=== PATIENT | male | born 1960 | race Caucasian/White ===

== ENCOUNTER 2020-03-14 13:19 | Outpatient (CLI) | payer OTHER, SELFPAY ==
--- NOTE | ~2020-03-14 | XR_ITS ---
EXAMINATION: XR knee LT 3V DATE: 03/14/2020 13:48 INDICATION: Left knee pain. TECHNIQUE: 3 views of left knee were obtained. COMPARISON: None. FINDINGS: Bone alignment is normal. No fracture. There is moderate osteoarthritis of medial compartme nt and mild osteoarthritis of lateral and patellofemoral compartments. There is chondrocalcinosis of the menisci. There is a small knee joint effusion. IMPRESSION: 1. Moderate left knee osteoarthritis. 2. Small knee joint effusion. Reviewed, dictated and finalized at location A.
== END 2020-03-14 13:20 | disposition home or self-care (01) ==
DX: M17.12 Unilateral primary osteoarthritis, left knee (principal); M25.462 Effusion, left knee
CPT/HCPCS: 73562

== ENCOUNTER 2020-09-27 14:23 | Outpatient (CLI) | payer OTHER, SELFPAY | END 2020-09-27 14:24 | disposition home or self-care (01) | LOC: ANHCOVIDVC 14:23 | PROVIDERS: PCP Internal Medicine | DX: Z23 Encounter for immunization (principal) | CPT/HCPCS: 0001A; 91300 ==

== ENCOUNTER 2020-10-18 14:23 | Outpatient (CLI) | payer OTHER, SELFPAY | END 2020-10-18 14:24 | disposition home or self-care (01) | LOC: ANHCOVIDVC 14:23 | PROVIDERS: PCP Internal Medicine | DX: Z23 Encounter for immunization (principal) | CPT/HCPCS: 0002A; 91300 ==

== ENCOUNTER 2021-06-24 16:49 | Emergency (ER) | payer OTHER, SELFPAY ==
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
[2021-06-24 16:51] VITALS: BP 130/89; PULSE 95; RESP 18; TEMP 37.1; O2SAT 100
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
[2021-06-24] MEDS: ONDANSETRON INJ 4 MG/2 ML VIAL IV PUSH (17:44)
[2021-06-24] MEDS: HYDROmorphone HCL INJ (*CRX) 1 MG/ML SYR 0.5 MG IV PUSH (17:45)
== END 2021-06-24 18:58 | disposition home or self-care (01) ==
PROVIDERS: Emergency Provider Emergency Medicine
DX: S52.92XA Unspecified fracture of left forearm, initial encounter for closed fracture (principal); V18.0XXA Pedal cycle driver injured in noncollision transport accident in nontraffic accident, initial encounter
CPT/HCPCS: 73090; 96374; 96375; 99284; A4565; J1170; J2405

== ENCOUNTER 2021-09-27 09:29 | Outpatient (CLI) | payer OTHER, SELFPAY ==
[2021-09-27 10:23] LABS: Anion Gap 11 mmol/L (8-16); Blood Urea Nitrogen 23 mg/dL (9-20); Calcium 9.2 mg/dL (8.4-10.2); Carbon Dioxide 29 mmol/L (22-30); Chloride 97 mmol/L (98-107); Estimated Glomerular Filt Rate > 60; Glucose 114 mg/dL (65-110); Potassium 3.5 mmol/L (3.4-5.0); Sodium 137 mmol/L (137-145)
== END 2021-09-27 09:30 | disposition home or self-care (01) ==
DX: M25.562 Pain in left knee (principal)
CPT/HCPCS: 36415; 80048

== ENCOUNTER 2025-05-27 13:00 | Day surgery (SDC) | payer OTHER, MEDICAID, SELFPAY ==
[2025-05-27] VITALS (9 sets, daily range): BP systolic 111–140; BP diastolic 72–85; PULSE 69–93; RESP 12–18; TEMP 36.2–36.5; O2SAT 96–100
--- NOTE | ~2025-05-27 | XR_ITS ---
PROCEDURE(S): XR abdomen/kub 1V INDICATION(S): Foreign body COMPARISON(S): None. TECHNIQUE: 2 supine radiographic images was/were obtained. FINDINGS: Bowel gas: The bowel gas pattern is non-specific. There is no evidence of bowel obstruction. Soft tissues: Normal. Bones: Osseous structures appear to be intact. A radiopaque device projects over the pelvic basin. It appears to be a dual lumen cylinder, object, possibly a sports drink a bottle. IMPRESSION: Foreign body in the rectum as described. Reviewed, dictated and finalized at location A. [employer]
--- OUTSIDE RECORDS SUMMARY | 2025-05-27 13:41 | XMS_ITS | Encounter Summary ---
Author Organization [facility] Address [address] [facility] [place] [address] Care Team Providers Care Barrel Stave Inspector Name Role Phone José March MD Primary Care Provider Encounter Details Date Type Department Care Team (Late st Contact Info) Description 05/04/2025 Results Follow-Up [facility] - Internal Med [address] [facility], [place] [address] José March MD [address] [facility] [place] [address] Social History Tobacco Use Types Packs/Day Years Used Date Smoking Tobacco: Former Cigarettes 1 Q uit: 2020 Smokeless Tobacco: Never Comments:pt said he wanted t o quit but can't afford the patch. Alcohol Use Standard Drinks/Week Comments Not Currently 0 (1 standard drink = 0.6 oz pur e alcohol) Rare occasion PHQ-2 Answer Date Recorded Patient Health Questionnaire-2 Score 0 03/25/2025 Sex and Gender Information Value Date Recorded Sex Assigned at Not on file Legal Sex Male 11:42 AM CDT Gender Identity Male 01/16/2019 6:13 AM CDT Sexual Orientation Not on file documented as of this encounter Functional Status * Is person deaf or have serious hearing difficulty? Answer Date of Assessment Author No 01/22/2019 3:24 PM CDT Caitlyn Hyatt, AINSLEY * Is person blind or have serious difficulty seeing? Answer Date of Assessment Author No 01/22/2019 3:24 PM CDT Caitlyn Hyatt RN * Does person have serious difficulty walking/climbing stairs? Answer Date of Assessment Author No 01/22/2019 3:24 PM CDT Caitlyn Hyatt RN * Does person have difficulty dressing/bathing? Answer Date of Assessment Author No 01/22/2019 3:24 PM CDT Caitlyn Hyatt RN * Does person have difficulty doing errands alone? Answer Date of Assessment Author No 01/22/2019 3:24 PM DIONIT Caitlyn Hyatt RN documented as of this encounter Mental Status * Does person have difficulty concentrating/remembering/making decisions? Answer Entry Date Author No 01/22/2019 3:24 PM Caitlyn Cevallos RN documented in this encounter Plan of Treatment Upcoming Encounters Date Type Department Care Team (Latest Contact Info) Description 07/23/2025 11:45 AM [facility] Hospital Encounter [facility] ENDOSCOPY [address] [place] [phone] Clif Berrios MD [address] [place] [phone] Surgery General 07/23/2025 11:45 AM [employer]ATOR [employer] - 07/23/2025 12:30 PM [facility] [employer] Surgery [facility] ENDOSCOPY [facility] [place] [address] Surgeon, [facility] COLONOSCOPY [facility]AGNOSTIC Scheduled Procedures Name Priority Associated Diagnoses Date/Ti me COLONOSCOPY DIAGNOSTIC Positive colorectal cancer screening using Cologuard test 07/23/2025 11:45 AM [employer] [employer] documented as of this encounter Goals Goal Patient Goal Type Associated Problems Recent Progress Patient-Stated? Author Medication Management General No Vani Lopez, RN Note: Interventions: Pain management Medication Management General On track( 020 2:10 PM CDT) No Gayle Lynn, RN Note: Expected end date: ongoing Interventions: Take all medications as prescribed documented as of this encounter Visit Diagnoses Not on filedocumented in this encounter Care Teams Barrel Stave Inspector Relationship Specialty Start Date End Date José March MD [address] [place] [address] [place] [address] PCP - General Internal Medicine 02/19/25 documented as of this encounter
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
--- OUTSIDE RECORDS SUMMARY | 2025-05-27 13:41 | XMS_ITS | Clinical Summary ---
Author Organization [facility] Address [address] [place] [address] Care Team Providers Care Laborer Stores Name Role Phone None, Provider MD Primary Care Provider Unavaila ble Allergies No known active allergies Medications albuterol sulfate HFA 108 (90 Base) MCG/ACT inhaler Inhale 2 puffs into the lungs every 4 (four) hours as needed for Wheezing or Shortness of breath. 1 Inhaler 9 Active ACETAMINOPHEN EXTRA STRENGTH 500 MG tablet 1 Active amLODIPine 10 MG tablet Take 10 mg by mouth daily. 1 Active SYMBICORT 160-4.5 MCG/ACT inhaler 2 puffs 2 (two) times daily. 1 Active buPROPion 75 MG tablet 0 Active chlorthalidone 25 MG tablet Take 50 mg by mouth daily. 1 Active chlorthalidone 50 MG tablet Take 50 mg by mouth daily. 1 Active DULoxetine 60 MG capsule Take 60 mg by mouth daily. 1 Active gabapentin 400 MG capsule Take 800 mg by mouth 3 (three) times daily. 1 Active hydrOXYzine 50 MG tablet Take 50 mg by mouth 4 (four) times daily. 1 Active naproxen 500 MG tablet Take 500 mg by mouth 2 (two) times daily. 1 Active amoxicillin-cla vulanate (AUGMENTIN) 875-125 MG tablet Take 1 tablet (875 mg total) by mouth 2 (two) times daily for 10 days. 20 tablet 5 05/02/20 25 Encounters Date Type Department Care Team Description 04/22/2025 12:37 AM CDT - 04/22/2025 1:42 AM CDT Emergency [facility] [place] [address] Deepika Tolentino PA Animal Bite Discharge Disposition: Home or Self Care (Routine Discharge) 04/22/2025 Travel from Last 3 Months Immunizations Immunization Administration Dates Next Due Tdap (Boostrix) 04/22/2025 Social History Tobacco Use Types Packs/Day Years Used Date Smoking Tobacco: Every Day Smokeless Tobacco: Never Alcohol Use Standard Drinks/Week Comments No 0 (1 standard drink = 0.6 oz pur e alcohol) AUDIT-C Answer Date Recorded Frequency of Alcohol Consumption Never 11/24/2018 Average Number of Drinks Not on file 019 Frequency of Binge Drinking Not on file 11/12 Sex and Gender Information Value Date Recorded Sex Assigned at Not on file Legal Sex Male 8:32 PM CDT Gender Identity Not on file Sexual Orientation Not on file Last Filed Vital Signs Vital Sign Reading Time Taken Comments Blood Pressure 121/84 04/22/2025 1:38 AM CDT Pulse 94 04/22/2025 1:38 AM CDT Temperature 36.4 C (97.6 F) 04/22/2025 12:28 AM CDT Respiratory Rate 18 04/22/2025 1:38 AM CDT Oxygen Saturation 97% 04/22/2025 1:38 AM CDT Inhaled Oxygen Concentration - - Weight 90.7 kg (200 lb) 04/22/2025 12:28 AM CDT Height 172.7 cm (5' 8) 04/22/2025 12:28 AM CDT Body Mass Index 30.41 04/22/2025 12:28 AM CDT Plan of Treatment Health Maintenance Due Date Last Done Comments Colorectal Cancer Screening Colonoscopy (10 Years) 1960 Pneumococcal Vaccine: 50+ Years (2 of 2 - PCV) 07/24/2020 07/24/2019 AAA SCREENING 2024 01/16/2019, 01/16/2019 COVID-19 Vaccine ( - 2024-2 6 season) 2025 11/30/2021, 10/18/2020, 09/27/2020 Influenza Adult (#1) 2025 04/29/2021, 03/30/2019 RSV Immunization or 60+ Years (1 - 1-dose 75+ series) 2034 DTaP, Tdap and Td Vaccines ( 3 - Td or Tdap) 04/22/2035 04/22/2025, 02/25/2020 Zoster Vaccines Completed 09/06/2019, 06/24/2019 Hepatitis C Completed 09/02/2023 Hepatitis A Vaccines Aged Out No long er eligible based on patient's age to complete this topic Meningococcal B Vaccine Aged Out No l onger eligible based on patient's age to complete this topic Meningococcal Vaccine Aged Out No kali darien eligible based on patient's age to complete this topic RSV Immunizations Under 20 Months Aged Out No longer eligible b ased on patient's age to complete this topic Insurance MEDICARE Care Teams Laborer Stores Relationship Specialty Start Date End Date None, Provider, PCP - General 11/24/18
--- OUTSIDE RECORDS SUMMARY | 2025-05-27 13:41 | XMS_ITS | Encounter Summary ---
Author Organization [facility] Address [address] [facility] [place] [address] Care Team Providers Care School Librarian Name Role Phone Cong Rob MD Primary Care Prov ider Oneal DE MD, Norman Brady Primary Care Provider + Lelia Naranjo MD Unavailable Oneal DE MD, Norman Brady Primary Care Provider + Oneal DE MD, Norman Brady Primary Care Provider + Lelia Naranjo MD Primary Care Provider Oneal DE MD, Norman Brady Primary Care Provider + Doris Urrutia MD Unavailable [phone] Carl Jean DO Unavailable [phone] Oneal DE MD, Norman Brady Primary Care Provider + José March MD Primary Care Provider [phone] Encounter Details Date Type Department Care Team (Late st Contact Info) Description 11/30/[address] [facility] INTERNAL MED [address] [place] [address] Dimitris Forte MD [address] [place] [address] Social History Tobacco Use Types Packs/Day Years [...] 3:24 PM CDT Caitlyn Hyatt RN * Is person blind [...] 01/22/2019 3:24 PM CDT Caitlyn Hyatt RN documented as of this encounter Mental Status * Does person have difficulty concentrating/remembering/making decisions? Answer Entry Date Author No 01/22/2019 3:24 PM DIONIT Caitlyn Hyatt RN documented in this encounter Miscellaneous Notes * Telephone Encounter - Dimitris Forte MD - 11/30/2019 1:26 PM CDT Telephone Note Called 1:39 PM without identifying voicemail. Tentative plan would be to start chantrix D/C amlodapine Start metop (if home bp readings elevated) Order PFTs Order Symbicort and albuterol Dimitris Forte MD documented in this encounter Plan of Treatment Upcoming Encounters Date Type Department Care Team (Latest Contact Info) Description 07/23/2025 11:45 AM [facility] Hospital Encounter [facility] ENDOSCOPY [address] [place] [address] Clif Berrios MD [address] [place] [address] Surgery General 07/23/2025 11:45 AM TOBACCO HANGER - 07/23/2025 12:30 PM TOBACCO HANGER Surgery [facility] ENDOSCOPY [address] [place] [phone] Surgeon, [facility]ONOS[facility]STIC Scheduled Procedures Name Priority Associated Diagnoses Date/Ti me COLONOSCOPY DIAGNOSTIC Positive colorectal cancer screening using Cologuard test 07/23/2025 11:45 AM TOBACCO HANGER documented as of this encounter Goals Goal Patient Goal Type Associated Problems Recent Progress Patient-Stated? Author Medication Management General No Vani Lopez, RN Note: Interventions: Pain management Medication Management General On track( 020 2:10 PM CDT) No Gayle Lynn, RN Note: Expected end date: ongoing Interventions: Take all medications as prescribed documented as of this encounter Visit Diagnoses Diagnosis Chronic obstructive pulmonary disease, unspecified COPD type (HCC)- Primary Positive colorectal cancer screening using Cologuard test documented in this encounter Care Teams School Librarian Relationship Specialty Start Date End Date Cong Rob MD PCP - General 03/24/19 03/08/20 Norman No III, MD PCP - General Internal Medicine 03/09/20 04/18/20 Norman No III, MD [address] [facility] [address] [place] [address] PCP - General Internal Medicine 04/19/20 06/02/20 Norman No III, MD [address] [facility] [address] OF [facility] [place] [place] [address] PCP - General Internal Medicine 06/07/20 06/13/20 Lelia Naranjo MD PCP - General 06/14/20 09/21/21 Norman No III, MD [address] OF [facility] [place] [place] [phone] PCP - General Internal Medicine 09/22/21 07/03/23 Norman No III, MD [address] OF [facility] [place] [address] PCP - General Internal Medicine 08/05/23 09/20/23 José March MD [address] [place] [phone] PCP - General Internal Medicine 02/19/25 Lelia Naranjo MD Resident - PCP Student Resident 03/09/20 01/17/22 Doris Urrutia MD [address] OF [facility] INTERNAL MEDICINE [place], [place] Resident - PCP Internal Medicine 11/16/21 01/17/22 Carl Jean DO [address] OF [facility] INTERNAL MEDICINE [place], [place] Resident - PCP Internal Medicine 01/28/23 02/18/25 documented as of this encounter
--- OUTSIDE RECORDS SUMMARY | 2025-05-27 13:42 | XMS_ITS | Clinical Summary ---
Author Organization [facility] [email or web address] Address [address] [place] [address] Care Team Providers Care Journeyman Welder Name Role Phone José March MD Primary Care Provider [phone] Source Comments [facility] [email or web address],non-owned Affiliates and Associated Physician Practices is amultiple site organization consisting of ambulatory clinics and hospital sitesin [place], [place], [place] and [place]. This disclosure is being madepursuant to the Care Everywhere program and may not contain all information available regarding this patient. Last updated 18.[facility] [email or web address] Allergies No known active allergies Medications * Be aware that medications may not be up to date on this document. Alwaysverify current medications with the patient. Blood Pressure Monitoring (Blood Pressure Cuff) [facility] Check blood pressure twice daily 1 Each 08/15/19 24 Active albuterol HFA (Proventil; Ventolin; Proair) 108 (90 Base) MCG/ACT inhaler Inhale 2 (two) puffs by mouth every 4 hours as needed 8.5 g 1 08/26/19 25 Active amLODIPine (Norvasc) 10 MG tablet Take 1 (one) tablet by mouth once daily 90 tablet 4 08/26/19 25 Active budesonide-formote rol (Symbicort) 160-4.5 MCG/ACT inhaler INHALE 2 PUFFS BY MOUTH 2 TIMES A DAY 10.2 g 3 08/26/19 25 Active chlorthalidone (Hygroton) 25 MG tablet Take 1 (one) tablet by mouth once daily 90 tablet 4 08/26/19 25 Active gabapentin (Neurontin) 400 MG capsule Take 2 (two) capsules by mouth 3 times daily 180 capsule 3 08/26/19 25 Active hydrOXYzine HCl (Atarax) 50 MG tabletIndications: Anxiety Take 1 (one) tablet by mouth 4 times daily as needed for Itching 120 tablet 11 08/26/19 25 Active meloxicam (Mobic) 15 MG tablet TAKE 1 TABLET BY MOUTH EVERY DAY NEEDED (FOR KNEE PAIN) 90 tablet 3 08/26/19 25 Active lidocaine (Lidoderm) 5 % patchIndications:O steoarthritis of both knees, unspecified osteoarthritis type Apply 3 (three) patches to skin once daily 90 patch 14 08/27/19 25 Active DULoxetine (Cymbalta) 60 MG capsuleIndications :Anxiety TAKE 1 CAPSULE BY MOUTH EVERY DAY 30 capsule 3 01/14/20 25 Active sildenafil (Viagra) 100 MG tabletIndications: Erectile dysfunction, unspecified erectile dysfunction type Take 1 (one) tablet by mouth once daily as needed 1 hour prior to intercourse 90 tablet 03/25/20 25 025 Active diclofenac sodium (Voltaren) 1 % gelIndications:Ost eoarthritis of both knees, unspecified osteoarthritis type Apply 4 (four) g to affected area 4 times daily 100 g 5 03/25/20 25 Active Active Problems Problem Noted Date Diagnosed Date Erectile dysfunction 03/26/2024 Positive colorectal cancer screening using Colog uard test 03/26/2024 Chondrocalcinosis 09/30/2023 Prediabetes 09/30/2023 Essential hypertension 02/13/2023 Hyperlipidemia 02/13/2023 Osteoarthritis 02/13/2023 MORIS (generalized anxiety disorder) 02/13/2023 Hepatitis C virus infection cured after antiviral drug therapy 07/24/2019 Overview (09/25/2019): Hepatitis B core antibody non reactive Genotype 1 a or 1 b Date of Exam: 09/25/2019 LSM, kPa 6.9 CAP 317 Chronic pain syndrome 05/15/2019 Osteomyelitis of vertebra, thoracic region 01/22 MSSA bacteremia 01/22/2019 Bacterial endocarditis 01/15/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 [phone] Davina Wing MD Discharge Disposition: Home or Self Care 05/11/2025 10:05 AM CDT - 05/11/2025 11:59 PM CDT Hospital Encounter [facility] [address] [address] [place] [address] Davina Wing MD Discharge Disposition: Home or Self Care 05/11/2025 Travel 05/10/2025 Telephone [facility] - Internal Med [address] [place] [phone] José March MD Medication Prior Auth Request 05/04/2025 Results Follow-Up [facility] [address] [place] [phone] José March MD 05/04/2025 Orders Only [facility] [address] [place] [phone] Davina Wing MD Pain in both knees, unspecified chronicity 05/03/2025 11:00 AM CDT - 05/03/2025 11:59 PM CDT Hospital Encounter [facility] [address] [place] [phone] Ruthy Miller MD Discharge Disposition: Home or Self Care 05/03/2025 Travel 04/26/2025 11:00 AM CDT Office Visit [facility] [address] [place] [phone] Zaynab Wells PA-C Primary osteoarthritis of right knee (Primary Dx); Primary osteoarthritis of left knee; Chronic pain of both knees 04/26/2025 Travel 03/26/2025 Telephone [facility] - Centralized Scheduling [address] [place] [address] José March MD Medication Issue 03/26/2025 Telephone [facility] [address] [place] [phone] José March MD Rx Medication Issue 03/25/2025 1:30 PM CDT Office Visit [facility] - [facility] [address] [place] [phone] José March MD Essential hypertension (Primary Dx); Erectile dysfunction, unspecified erectile dysfunction type; Personal history of nicotine dependence; Positive colorectal cancer screening using Cologuard test; Hyperlipidemia, unspecified hyperlipidemia type; Prediabetes; Osteoarthritis of both knees, unspecified osteoarthritis type; Cataract of both eyes, unspecified cataract type 03/25/2025 Patient Outreach [facility] [address] [place] [phone] Lidya Horan RN 03/25/2025 Travel from Last 3 Months Immunizations Immunization Administration Dates Next Due CovWedWu primary monoval ent 12+ yr 0.3mL Purple cap 10/18/2020,09/27/2020 INFLUENZA VACCINE, QUADR. (A FLURIA, FLUZONE QUADRIVALENT; 6MO+) (IIV4) 03/30/2019 INFLUENZA VACCINE, QUADR. (F LUZONE; FLULAVAL; FLUARIX; AFLURIA QUADRIVALENT; 6MO+), 0.5 ML (IIV4) 04/29/2021,03/30/2019 MODERNA SARS-COV-2 COVID-19 VACCINE 0.25ML 11/30 PNEUMOCOCCAL PPSV23 07/24/2019 TDAP (7yrs+) 02/25/2020 Zoster Hzv Vacc Recombinant Inj Im 09/06/2019,,06/24/2019 Family History Medical History Relation Name Comments Cancer - Pancreatic Brother Cancer - Liver Mother Diabetes - Type 2 Mother Lymphoma Mother Hypertension Other Relation Name Status Comments Brother Mother Other Social History Tobacco Use Types Packs/Day Years Used Date Smoking Tobacco: Former Cigarettes 1 Q uit: 2020 Smokeless Tobacco: Never Tobacco Cessation:Counseling Given: Not Answered Comments:pt said he wanted to quit but can't afford the patch. Alcohol [...] AM CDT Sexual Orientation Not on file Last Filed Vital Signs Vital Sign Reading Time Taken Comments Blood Pressure 128/81 03/25/2025 1:33 PM CDT Pulse 82 03/25/2025 1:33 PM CDT Temperature 36.4 C (97.5 F) 03/25/2025 1:33 PM CDT Respiratory Rate 16 08/15/2023 1:14 PM TEACHER VISUALLY IMPAIRED Oxygen Saturation 95% 03/25/2025 1:33 PM CDT Inhaled Oxygen Concentration - - Weight 86.2 kg (190 lb) 04/26/2025 11:17 AM CDT Height 170.2 cm (5' 7) 03/25/2025 1:33 PM CDT Body Mass Index 29.76 03/25/2025 1:33 PM CDT Plan of Treatment Upcoming Encounters Date Type Department Care Team (Latest Contact Info) Description 07/23/2025 11:45 AM [facility] Hospital Encounter [facility] [address] [place] [phone] Clif Berrios MD [address] [place] [phone] Surgery General 07/23/2025 11:45 AM TEACHER VISUALLY IMPAIRED - 07/23/2025 12:30 PM [facility] Surgery [facility] [address] [place] [phone] Surgeon, [facility] Scheduled Procedures Name Priority Associated Diagnoses Date/Ti me COLONOSCOPY DIAGNOSTIC Positive colorectal cancer screening using Cologuard test 07/23/2025 11:45 AM TEACHER VISUALLY IMPAIRED Health Maintenance Due Date Last Done Comments COLON MONITORING 1959 COLONOSCOPY - COLON CA SCREENING 1959 CT COLONOGRAPHY - COLON CA SCREENING 1959 FIT - COLON CA SCREENING 1959 FLEX SIG - COLON CA SCREENING 1959 PNEUMOCOCCAL VACCINE 50+ (2 of 2 - PCV) 07/24/2020 07/24/2019 COLOGUARD (AGES 45-75) - COLON CA SCREENING 06/19/2023 06/19/2020, 06/19/2020 Colorectal Cancer Screening 06/19/2023 MEDICARE AWV CALENDAR YEAR 2024 COVID-19 VACCINE ( season) 2025 11/30/2021, 03/06/2021, 10/18/2020, Additional history exists INFLUENZA VACCINE (#1) 2025 1, 03/30/2019, 03/30/2019 SCREENING FOR DIABETES 09/26/2026 4, 09/27/2023, 06/21/2020, Additional history exists LIPID TESTING 09/26/2028 09/27/2023, 03/20/2019 DTAP/TDAP/TD VACCINES (2 - Td or Tdap) 02/24/2030 02/25/2020 Respiratory Syncytial Virus (RSV) Vaccine Pt: or over 60 yrs (1 - 1-dose 75+ series) 2034 HIV SCREENING Completed 01/17/2019 ZOSTER VACCINE Completed 09/06/2019, 06/14, 06/24/2019 HEPATITIS C SCREENING Completed 09/27/2023 , 09/27/2023, 09/02/2023, Additional history exists DEPRESSION SCREENING Completed 03/25/2025, 08/15/19 24 AAA SCREENING Completed 05/03/2025 HEPATITIS B VACCINE Aged Out No longe r eligible based on patient's age to complete this topic HIB VACCINE Aged Out No longer eligi ble based on patient's age to complete this topic HPV VACCINE Aged Out No longer eligi ble based on patient's age to complete this topic MENINGOCOCCAL (Group B) VACCINE SHARED DECISION-MAKING Aged Out No longer eligible based on patient's age to complete this topic MENINGOCOCCAL GROUPS A/C/Y/W VACCINE Aged Out No longer eligible based on patient's age to complete this topic Opioid Medication Agreement - Annual Discontinued Goals Goal Patient Goal Type Associated Problems Recent Progress Patient-Stated? Author Medication Management General No Vani Lopez, RN Note: Interventions: Pain management Medication Management General On track( 020 2:10 PM CDT) No Gayle Lynn, RN Note: Expected end date: ongoing Interventions: Take all medications as prescribed Procedures Procedure Name Priority Date/Time Associated Diagnosis Comments XR KNEE RIGHT 3VW Routine 05/11/2025 10: 16 AM CDT Pain in both knees, unspecified chronicity XR KNEE LEFT 3VW Routine 05/11/2025 10:1 6 AM CDT Pain in both knees, unspecified chronicity US AAA SCREENING Routine 05/03/2025 11:4 9 AM CDT Personal history of nicotine dependence HEMOGLOBIN A1C Routine 09/27/2023 4:28 PM CDT Encounter for screening and preventative care LIPID PROFILE Routine 09/27/2023 4:28 PM CDT Encounter for screening and preventative care HEPATITIS C RNA QUANTITATIVE Routine 09/02/2023 1:53 PM TEACHER VISUALLY IMPAIRED Chronic hepatitis C without hepatic coma COLOGUARD TEST Routine 06/19/2020 6:00 PM TEACHER VISUALLY IMPAIRED Special screening for malignant neoplasms, colon HIV-1 HIV-2 ANTIGEN/ANTIBODY AM Draw 01/17/2019 4:52 AM CDT from Last 3 Months or Most Recently Relevant to Health Maintenance Results * XR Knee Right 3Vw (05/11/2025 10:16 AM CDT) Anatomical Region Laterality Modality Lower Extremity Radiographic Eli ging 05/11/2025 11:2 4 AM CDT Impressions 05/11/2025 11:25 AM CDT IMPRESSION: There is open reduction internal fixation of the proximal tibia with a lateral plate and multiple screws. There is no fracture of the implant. There is moderate tricompartmental right knee osteoarthritis. There is chondrocalcinosis of the meniscus. Alignment of the knee is normal. > Interpreting Provider: Jefferson Horta MD on 05/11/2025 11:25 AM Narrative 05/11/2025 11:25 AM CDT PROCEDURE: XR KNEE RIGHT 3VW DATE/TIME OF EXAM: 05/11/2025 10:17 AM CLINICAL INFORMATION: None relevant/not provided if blank. Indication: M25.561: Pain in both knees, unspecified chronicity M25.562: Pain in both knees, unspecified chronicity Additional History: COMPARISON: None. Procedure Note Jefferson Horta MD - 05/11/2025 PROCEDURE: XR KNEE RIGHT 3VW DATE/TIME OF EXAM: 05/11/2025 10:17 AM CLINICAL INFORMATION: None relevant/not provided if blank. Indication: M25.561: Pain in both knees, unspecified chronicity M25.562: Pain in both knees, unspecified chronicity Additional History: COMPARISON: None. IMPRESSION: There is open reduction internal fixation of the proximal tibia with a lateral plate and multiple screws. There is no fracture of the implant. There is moderate tricompartmental right knee osteoarthritis. There is chondrocalcinosis of the meniscus. Alignment of the knee is normal. > Interpreting Provider: Jefferson Horta MD on 05/11/2025 11:25 AM Davina Wing MD DIAGNOSTIC IMAGING ORDERABLES Fi nal Result * XR Knee Left 3Vw (05/11/2025 10:16 AM CDT) Anatomical Region Laterality Modality Lower Extremity Radiographic Eli ging 05/11/2025 11:2 6 AM CDT Impressions 05/11/2025 11:27 AM CDT IMPRESSION: Moderate medial compartment predominant tricompartmental knee osteoarthritis. There is chondrocalcinosis of the meniscus. No acute fracture. There is a small knee effusion. Alignment is normal. > Interpreting Provider: Jefferson Horta MD on 05/11/2025 11:27 AM Narrative 05/11/2025 11:27 AM CDT PROCEDURE: XR KNEE LEFT 3VW DATE/TIME OF EXAM: 05/11/2025 10:16 AM CLINICAL INFORMATION: None relevant/not provided if blank. Indication: M25.561: Pain in both knees, unspecified chronicity M25.562: Pain in both knees, unspecified chronicity Additional History: COMPARISON: 09/27/2023, XR KNEE LEFT 4VW OR MORE Procedure Note Jefferson Horta MD - 05/11/2025 PROCEDURE: XR KNEE LEFT 3VW DATE/TIME OF EXAM: 05/11/2025 10:16 AM CLINICAL INFORMATION: None relevant/not provided if blank. Indication: M25.561: Pain in both knees, unspecified chronicity M25.562: Pain in both knees, unspecified chronicity Additional History: COMPARISON: 09/27/2023, XR KNEE LEFT 4VW OR MORE IMPRESSION: Moderate medial compartment predominant tricompartmental knee osteoarthritis. There is chondrocalcinosis of the meniscus. No acute fracture. There is a small knee effusion. Alignment is normal. > Interpreting Provider: Jefferosn Horta MD on 05/11/2025 11:27 AM Davina Wing MD DIAGNOSTIC IMAGING ORDERABLES Fi nal Result * US AAA Screening (05/03/2025 11:49 AM CDT) Anatomical Region Laterality Modality Abdomen Ultrasound 05/03/2025 11:5 1 AM CDT Impressions 05/03/2025 11:52 AM CDT IMPRESSION: No evidence of abdominal aortic aneurysm. > Interpreting Provider: Erasmo Torrez on 05/03/2025 11:52 AM Narrative 05/03/2025 11:52 AM CDT PROCEDURE: US AAA SCREENING, DATE/TIME OF EXAM: 05/03/2025 11:49 AM, LOCATION [facility] INDICATION: Z87.891: Personal history of nicotine dependence ADDITIONAL CLINICAL INFORMATION: Ordering Provider Reason For Exam: Technologist Note: Additional: COMPARISON: None. FINDINGS: Proximal abdominal aorta: 2.5 cm AP x 2.4 cm transverse Mid abdominal aorta: 1.5 x 1.7 cm Distal abdominal aorta: 1.3 x 1.6 cm Right common iliac artery: 1 x 1 mm Left common iliac artery: 1 x 0.9 mm There is no evidence of abdominal aortic or common iliac artery aneurysm. The abdominal aorta and common iliac arteries are patent. Hyperechoic foci in the abdominal aorta and proximal iliac arteries represent atherosclerotic plaques. Procedure Note Erasmo Sykes MD - 05/03/2025 PROCEDURE: US AAA SCREENING, DATE/TIME OF EXAM: 05/03/2025 11:49 AM, LOCATION [facility] INDICATION: Z87.891: Personal history of nicotine dependence ADDITIONAL CLINICAL INFORMATION: Ordering Provider Reason For Exam: Technologist Note: Additional: COMPARISON: None. FINDINGS: Proximal abdominal aorta: 2.5 cm AP x 2.4 cm transverse Mid abdominal aorta: 1.5 x 1.7 cm Distal abdominal aorta: 1.3 x 1.6 cm Right common iliac artery: 1 x 1 mm Left common iliac artery: 1 x 0.9 mm There is no evidence of abdominal aortic or common iliac arteryaneurysm. The abdominal aorta and common iliac arteries are patent. Hyperechoicfoci in the abdominal aorta and proximal iliac arteries represent atherosclerotic plaques. IMPRESSION: No evidence of abdominal aortic aneurysm. > Interpreting Provider: Erasmo Torrez on 05/03/2025 11:52 AM us Ruthy Miller MD US ORDERABLES Final Resul t * (ABNORMAL) HEMOGLOBIN A1C (09/27/2023 4:28 PM CDT) Hemoglobin A1c 5.9(H) <=5.6 % 09/28/2023 10:18 AM T [facility] Estimated Average Glucose 123 mg/dL 09/28/2023 10:18 AM [facility] Comment: HbA1c Interpretation: Normal : < 5.7% Pre-diabetes: 5.7-6.4% Diabetes: Equal to or greater than 6.5% Test results diagnostic of diabetes should be repeated for confirmation. Treatment target values recommended by ADA and other clinical organizations should be used to evaluate metabolic control in patients. Reference: [place] Diabetes Association, Standards of Care in Diabetes -2020 In patients 70 years and older consider HbA1c target range of 7.0-7.5% (Reference: Adonay Bass et al. JAMDA. 2012) The Sebia assay for the measurement of HbA1c is a National Glycohemoglobin Standardization Program (NGSP) certified method. Blood BLOOD SPECIMEN / Unknown Lab Venipuncture / Unknown 09/27/2023 4:28 PM CDT 09/27/2023 4:53 PM CDT Koko Joy MD LAB - CHEMISTRY ORDERABLES Fin al Result Performing Organization Address [facility] Co de Phone Number [facility] [address] [place] [phone], [facility] [phone] * (ABNORMAL) LIPID PROFILE (09/27/2023 4:28 PM CDT) Cholesterol Total 174 <200 mg/dL 09/27/2023 5:29 PM T [facility] HDL 34(L) >40 mg/dL 09/27/2023 5:29 PM T [facility] Comment: ATP III Classification of HDL Cholesterol: <40 mg/dL: Considered a major risk factor. >60 mg/dL: Considered a negative risk factor. LDL Calculated 106(H) <100 mg/dL 09/27/2023 5:29 PM [facility] Comment: ATP III Classification of LDL Cholesterol: <100 mg/dL: Optimal 100 - 129 mg/dL: Near Optimal/Above Optimal 130 - 159 mg/dL: Borderline High 160 - 189 mg/dL: High >190 mg/dL: Very High Triglycerides 168(H) <150 mg/dL 09/27/2023 5:29 PM T [facility] Comment: ATP III Classification of Triglycerides: <150 mg/dL: Normal 150 - 199 mg/dL: Borderline High 200 - 400 mg/dL: High >500 mg/dL: Very High Blood BLOOD SPECIMEN / Unknown Lab Venipuncture / Unknown 09/27/2023 4:28 PM CDT 09/27/2023 4:55 PM CDT Koko Joy MD LAB - CHEMISTRY ORDERABLES Fin al Result [facility] [address] [place] [address], [facility] [phone] * HEPATITIS C RNA QUANTITATIVE (09/02/2023 1:53 PM TEACHER VISUALLY IMPAIRED) [facility] Hepatitis C Virus RNA, Quantitative Real Time PCR <15 NOT DETECTED NOT DETECTED IU/mL JOSÉ Hepatitis C Virus RNA, Quantitative Real Time PCR <1.18 NOT DETECTED NOT DETECTED Log IU/mL JOSÉ Comment: This test was performed using Real-Time Polymerase Chain Reaction. Reportable Range: 15 IU/mL to 100,000,000 IU/mL (1.18 Log IU/mL to 8.00 Log IU/mL). The analytical performance characteristics of this assay have been determined by [employer]. The modifications have not been cleared or approved by the FDA. This assay has been validated pursuant to the CLIA regulations and is used for clinical purposes. For more information on this test, go to: http://education.InstantQ/faq/SDZ11s6 (This link is being provided for informational/ educational purposes only.) Test Performed at: [facility] [id number] [place] [address] MYAH KELLY MD Blood BLOOD SPECIMEN / Unknown 09/02/2023 1:53 PM TEACHER VISUALLY IMPAIRED 09/02/2023 1:54 PM TEACHER VISUALLY IMPAIRED Kain Loco MD LAB - CHEMISTRY ORDERAB LES Final Result [facility] [address] [place] [address] * (ABNORMAL) COLOGUARD TEST (06/19/2020 6:00 PM TEACHER VISUALLY IMPAIRED) [facility] Cologuard Positive (A) Not Applicable [facility] Comment: It is recommended that a positive Cologuard screen be clinically correlated and followed-up with a structural examination of the colon such as diagnostic colonoscopy. Colonoscopies performed for a positive Cologuard may find as the most clinically significant lesion: colorectal cancer [4.0%], advanced adenoma (including sessile serrated polyps greater than or equal to 1cm diameter) [20%] or non- advanced adenoma [31%]; or no colorectal neoplasia [45%]. These estimates are derived from a prospective cross-sectional screening study of 10,000 individuals at average risk for colorectal cancer who were screened with both Cologuard and colonoscopy. (Table 3, Laura Sanchez al, N Engl J Med 2014;370(14):4970-6865.) The normal value (reference range) for this assay is negative. TEST TYPE: Composite algorithmic analysis of stool DNA-biomarkers with hemoglobin immunoassay. Quantitative values of individual biomarkers are not reportable and are not associated with individual biomarker result reference ranges. PRECAUTIONS AND LIMITATIONS: Cologuard is intended for colorectal cancer screening of adults of either sex, 45 years or older, who are at average-risk for colorectal cancer (CRC). Cologuard has been approved for use by the U.S. FDA. Cologuard may produce a false negative or false positive result. A negative Cologuard test result does not guarantee the absence of CRC or advanced adenoma (pre-cancer). Patients with a negative Cologuard test result should be advised to continue participating in a colorectal cancer screening program. The screening interval for Cologuard is currently recommended at an interval of every 3 years by the [place] Cancer Society and U.S. Multi-Society Task Force. A false positive result occurs when Cologuard produces a positive result, even though a colonoscopy may not find colorectal cancer or precancerous polyps. The performance of Cologuard has been established in a cross sectional study (i.e., single point in time) of average-risk adults aged 50-84. Cologuard performance in patients ages 45 to 49 years was estimated by sub-group analysis of near-age groups. Cologuard performance data in a 10,000 patient pivotal study using colonoscopy as the reference method can be accessed at the following location: [email or web address]/results. Additional description of the Cologuard test process, warnings and precautions can be found at www.cologuardtest.com. Rx only. Stool specimen (specimen) STOOL SPECIMEN / Unknown 06/19/2020 6:00 PM TEACHER VISUALLY IMPAIRED 06/21/2020 9:20 AM TEACHER VISUALLY IMPAIRED us Lelia Naranjo MD LAB - CHEMISTRY ORDERABLES Final Result [facility] [address] [address] [address] [facility] [address] [address] [place] [address]. [place] [address] * HIV-1 HIV-2 ANTIGEN/ANTIBODY (01/17/2019 4:52 AM CDT) HIV Antigen/Antibod y 1 & 2 Non-reacti ve Non-react mati 01/17/2019 5:46 AM CDT [facility] Comment: Neither HIV-1 p24 Antigen nor HIV-1/HIV-2 Antibodies are detected. Blood BLOOD SPECIMEN / Unknown Lab Venipuncture / Unknown 01/17/2019 4:52 AM CDT 01/17/2019 5:01 AM CDT Carolyn Diallo MD LAB - HEMATOLOGY ORDERABLES Blaire l Result [address] [phone] from Last 3 Months or Most Recently Relevant to Health Maintenance Insurance [facility] [employer] MEDICARE ADV HMO & PPO MEDICAID - [place] Advance Directives * Full Code (Latest Code Status on File) Date Activated Date Inactivated Comments 01/15/2019 9:06 PM 03/01/2019 11:41 AM Care Teams Journeyman Welder Relationship Specialty Start Date End Date José March MD [address] [facility] [place] [address] PCP - General Internal Medicine 02/19/25
--- NOTE | 2025-05-27 14:24 | ED.ABDPAIN ---
HPI - Abdominal Pain General Chief Complaint: Unspecified <Patricia Gallagher PA-C - Last Filed: 06/05/25 14:45> Stated Complaint: abd pain <Patricia Gallagher PA-C - Last Filed: 06/05/25 14:45> Time Seen by Provider: 05/27/25 14:24 <Patricia Gallagher PA-C - Last Filed: 06/05/25 14:45> Focused HPI: This is a 64 year old male that presents to the ER for abdominal pain. Reports he thinks he has something lodged up his rectum. This happened last night. He is unsure what the object is. GENERAL: Well-appearing, well-nourished, and in no acute distress. HEAD: Normocephalic, atraumatic. CHEST: Clear to auscultation. ?No respiratory distress. HEART: Regular rate and rhythm.? NEURO: ?Alert and oriented x3. Patient screened in triage and initial orders placed.? ?Additional care and disposition to be based upon?diagnostic testing and treatment. <Patricia Gallagher PA-C - Last Filed: 06/05/25 14:45> History of Present Illness HPI narrative: I agree with the above HPI <Reuben Lau MD - Last Filed: 05/27/25 22:32> Related Data Home Medications: Home Medications ?Medication ?Instructions ?Recorded ?Confirmed ?Last Taken ?Type amlodipine 10 mg tablet 40 mg PO DAILY 06/27/21 05/27/25 05/27/25 History hydroxyzine HCl 10 mg tablet 10 mg PO TID PRN 06/27/21 Unknown History chlorthalidone 25 mg tablet 25 mg PO DAILY 05/27/25 05/27/25 05/27/25 History duloxetine 60 mg capsule,delayed 60 mg PO DAILY 05/27/25 05/27/25 05/27/25 History release gabapentin 400 mg capsule 400 mg PO DAILY 05/27/25 05/27/25 05/27/25 History hydroxyzine HCl 50 mg tablet 50 mg PO Q8H 05/27/25 05/27/25 05/27/25 History meloxicam 15 mg tablet 15 mg PO DAILY 05/27/25 05/27/25 05/27/25 History sildenafil 100 mg tablet 100 mg PO PRN PRN erectile 05/27/25 05/27/25 Unknown History dysfunction <Patricia Gallagher PA-C - Last Filed: 06/05/25 14:45> Allergies/Adverse Reactions: Allergies Allergy/AdvReac Type Severity Reaction Status Date / Time No Known Allergies Allergy Verified 05/27/25 16:50 <Patricia Gallagher PA-C - Last Filed: 06/05/25 14:45> Review of Systems Review of Systems: All systems reviewed & are unremarkable except as noted in HPI and below <Patricia Gallagher PA-C - Last Filed: 06/05/25 14:45> [facility] Past Medical History Medical History: Medical History Tobacco dependence Bilateral primary osteoarthritis of knee Osteoporosis Anxiety Depression Dry skin Constipation When taking anxiety medication Chronic headaches Back pain Weight gain Left knee DJD Right knee DJD Spider bite Vision changes COPD (chronic obstructive pulmonary disease) Left ulnar fracture <Patircia Gallagher PA-C - Last Filed: 06/05/25 14:45> Surgical History Surgical History: Surgical History History of ankle surgery History of surgery on right wrist <Patricia Gallagher PA-C - Last Filed: 06/05/25 14:45> Social History Social History: Social History Smoking packs per day: 1 Smoking cigarettes per day: 20.0 Years smoked: 45 Smoking pack-years: 45.00 Smoking status: Current every day smoker (vaping) Tobacco type: cigarettes Alcohol intake: current Substance use: current Substance use type: marijuana and crack/cocaine Last use: 05/26/25 Living arrangements: with family <Patricia Gallagher PA-C - Last Filed: 06/05/25 14:45> Procedures Foreign Body Removal Foreign Body #1: Foreign Body Removal Date: 05/27/25 <Reuben Lau MD - Last Filed: 05/27/25 22:32> Time Out Performed: yes <Reuben Lau MD - Last Filed: 05/27/25 22:32> Site: rectum <Reuben Lau MD - Last Filed: 05/27/25 22:32> Description of foreign body: sex toy <Reuben Lau MD - Last Filed: 05/27/25 22:32> Sedation/Analgesia: none <Reuben Lau MD - Last Filed: 05/27/25 22:32> Technique: manual removal <Reuben Lau MD - Last Filed: 05/27/25 22:32> Confirmed by:: palpation <Reuben Lau MD - Last Filed: 05/27/25 22:32> Complications: none <Reuben Lau MD - Last Filed: 05/27/25 22:32> Foreign Body Removal Narrative: Foreign body was not successfully removed at bedside <Reuben Lau MD - Last Filed: 05/27/25 22:32> Course Vital Signs Vital signs: Vital Signs Temperature 97.7 F 05/27/25 13:10 Pulse Rate 93 05/27/25 13:10 Respiratory Rate 16 05/27/25 13:10 Blood Pressure 113/83 05/27/25 13:10 Pulse Oximetry 97 05/27/25 13:10 Oxygen Delivery Room Air 05/27/25 13:10 Temperature 97.1 F L 05/27/25 17:20 Pulse Rate 81 05/27/25 18:29 Respiratory Rate 16 05/27/25 17:55 Blood Pressure 140/80 05/27/25 18:29 Pulse Oximetry 97 05/27/25 17:55 Oxygen Delivery Room Air 05/27/25 18:29 Oxygen Flow Rate 8 05/27/25 17:20 <Patricia Gallagher PA-C - Last Filed: 06/05/25 14:45> Vital Signs Temperature 97.7 F 05/27/25 13:10 Pulse Rate 93 05/27/25 13:10 Respiratory Rate 16 05/27/25 13:10 Blood Pressure 113/83 05/27/25 13:10 Pulse Oximetry 97 05/27/25 13:10 Oxygen Delivery Room Air 05/27/25 13:10 Temperature 97.1 F L 05/27/25 17:20 Pulse Rate 81 05/27/25 18:29 Respiratory Rate 16 05/27/25 17:55 Blood Pressure 140/80 05/27/25 18:29 Pulse Oximetry 97 05/27/25 17:55 Oxygen Delivery Room Air 05/27/25 18:29 Oxygen Flow Rate 8 05/27/25 17:20 <Reuben Lua MD - Last Filed: 05/27/25 22:32> MDM - Abdominal Pain MDM Narrative Medical decision making narrative: 64-year-old male presented to the emergency department for evaluation for a rectal foreign body. Object appears to be a 60 mm wide water bottle. Attempted disimpaction emergency department. Able to feel the distal and of the water bottle cap but unable to extract emergency department. Surgery was consulted and patient was taken to the or for extraction <Reuben Lau MD - Last Filed: 05/27/25 22:32> Differential Diagnosis Differential diagnosis: Likely abdominal pain and other (Rectal foreign body, bowel perforation, proctitis) <Reuben Lau MD - Last Filed: 05/27/25 22:32> Lab Data Attestation: I reviewed the patient's lab results. <Reuben Lau MD - Last Filed: 05/27/25 22:32> Result diagrams: 05/27/25 16:09 05/27/25 16:09 <Patricia Gallagher PA-C - Last Filed: 06/05/25 14:45> Labs: Lab Results 05/27/25 Range/Units 16:09 WBC 9.2 (4.5-10.0) K/mm3 RBC 4.57 L (4.6-6.20) M/mm3 Hgb 13.9 L (14.0-18.0) g/dL Hct 42.1 (42.0-52.0) % MCV 92.1 (80-100) fl MCH 30.4 (26-34) pg MCHC 33.0 (32-36) g/dl RDW 13.1 (11.5-14.5) % Plt Count 295 (150-375) k/mm3 MPV 9.2 (7.4-10.4) fl Immature Gran % (Auto) 0.4 (0-0.5) % Neut % (Auto) 74.5 H (45.5-73.1) % Lymph % (Auto) 15.0 L (18.3-44.2) % [place] % (Auto) 9.0 H (2.6-8.5) % Eos % (Auto) 0.0 (0-4.4) % Baso % (Auto) 1.1 (0.2-1.2) % Lymph # (Auto) 1.37 (0.9-3.2) K/mm3 [place] # (Auto) 0.8 H (0.1-0.6) K/mm3 Eos # (Auto) 0.0 (0-0.3) K/mm3 Baso # (Auto) 0.1 (0.0-0.1) K/mm3 Abs Immat Gran (auto) 0.04 H (0.00-0.031) K/mm3 Absolute Neuts (auto) 6.8 H (1.3-6.7) K/mm3 Absolute Nucleated RBC 0.000 (0.0-0.012) K/mm3 Nucleated RBC % 0.0 (0.0-0.2) % PT 13.6 (11.1-14.7) Seconds INR 1.0 APTT 31.0 (22.3-36.8) Seconds Sodium 139 (137-145) mmol/L Potassium 3.8 (3.4-5.0) mmol/L Chloride 104 (98-107) mmol/L Carbon Dioxide 26 (22-30) mmol/L Anion Gap 9 (4-12) mmol/L BUN 24 H (9-20) mg/dL Creatinine 1.14 (0.7-1.3) mg/dL Estim Creat Clear Calc 61 ml/min Estimated GFR > 60 (59 - ) Glucose 101 (65-110) mg/dL Calcium 9.0 (8.4-10.2) mg/dL Total Bilirubin 0.4 (0.2-1.3) mg/dL AST 30 (17-59) U/L ALT 22 (6-50) U/L Alkaline Phosphatase 93 (38-126) U/L Total Protein 8.3 H (6.3-8.2) g/dL Albumin 4.8 (3.5-5.1) g/dL Lipase 80 (23-300) U/L Urine Color Dark yellow (Yellow) Urine Appearance Clear (Clear) Urine pH 5.5 (5.0-9.0) Ur Specific [place] 1.031 (1.001-1.035) Urine Protein Negative (Negative) mg/dL Urine Glucose (UA) Negative (Negative) mg/dL Urine Ketones Trace H (Negative) mg/dL Ur Blood (Man) Negative (Negative) Urine Nitrate Negative (Negative) Urine Bilirubin Negative (Negative) Urine Urobilinogen 1.0 (<2.0) mg/dL Leukocyte Esterase Rfl Trace H (Negative) ROSA/UL Urine RBC 0-2 (0-2) /hpf Urine WBC 0-5 (0-3) /hpf Ur Squamous Epith Cells None seen (Few) /hpf Urine Bacteria None seen /hpf Urine Casts 3-5 <Patricia Gallagher PA-C - Last Filed: 06/05/25 14:45> Lab Results 05/27/25 Range/Units 16:09 WBC 9.2 (4.5-10.0) K/mm3 RBC 4.57 L (4.6-6.20) M/mm3 Hgb 13.9 L (14.0-18.0) g/dL Hct 42.1 (42.0-52.0) % MCV 92.1 (80-100) fl MCH 30.4 (26-34) pg MCHC 33.0 (32-36) g/dl RDW 13.1 (11.5-14.5) % Plt Count 295 (150-375) k/mm3 MPV 9.2 (7.4-10.4) fl Immature Gran % (Auto) 0.4 (0-0.5) % Neut % (Auto) 74.5 H (45.5-73.1) % Lymph % (Auto) 15.0 L (18.3-44.2) % [place] % (Auto) 9.0 H (2.6-8.5) % Eos % (Auto) 0.0 (0-4.4) % Baso % (Auto) 1.1 (0.2-1.2) % Lymph # (Auto) 1.37 (0.9-3.2) K/mm3 [place] # (Auto) 0.8 H (0.1-0.6) K/mm3 Eos # (Auto) 0.0 (0-0.3) K/mm3 Baso # (Auto) 0.1 (0.0-0.1) K/mm3 Abs Immat Gran (auto) 0.04 H (0.00-0.031) K/mm3 Absolute Neuts (auto) 6.8 H (1.3-6.7) K/mm3 Absolute Nucleated RBC 0.000 (0.0-0.012) K/mm3 Nucleated RBC % 0.0 (0.0-0.2) % PT 13.6 (11.1-14.7) Seconds INR 1.0 APTT 31.0 (22.3-36.8) Seconds Sodium 139 (137-145) mmol/L Potassium 3.8 (3.4-5.0) mmol/L Chloride 104 (98-107) mmol/L Carbon Dioxide 26 (22-30) mmol/L Anion Gap 9 (4-12) mmol/L BUN 24 H (9-20) mg/dL Creatinine 1.14 (0.7-1.3) mg/dL Estim Creat Clear Calc 61 ml/min Estimated GFR > 60 (59 - ) Glucose 101 (65-110) mg/dL Calcium 9.0 (8.4-10.2) mg/dL Total Bilirubin 0.4 (0.2-1.3) mg/dL AST 30 (17-59) U/L ALT 22 (6-50) U/L Alkaline Phosphatase 93 (38-126) U/L Total Protein 8.3 H (6.3-8.2) g/dL Albumin 4.8 (3.5-5.1) g/dL Lipase 80 (23-300) U/L Urine Color Dark yellow (Yellow) Urine Appearance Clear (Clear) Urine pH 5.5 (5.0-9.0) Ur Specific [place] 1.031 (1.001-1.035) Urine Protein Negative (Negative) mg/dL Urine Glucose (UA) Negative (Negative) mg/dL Urine Ketones Trace H (Negative) mg/dL Ur Blood (Man) Negative (Negative) Urine Nitrate Negative (Negative) Urine Bilirubin Negative (Negative) Urine Urobilinogen 1.0 (<2.0) mg/dL Leukocyte Esterase Rfl Trace H (Negative) ROSA/UL Urine RBC 0-2 (0-2) /hpf Urine WBC 0-5 (0-3) /hpf Ur Squamous Epith Cells None seen (Few) /hpf Urine Bacteria None seen /hpf Urine Casts 3-5 <Reuben Lau MD - Last Filed: 05/27/25 22:32> Imaging Data Attestation: I personally reviewed and interpreted this imaging study as follows: <Reuben Lau MD - Last Filed: 05/27/25 22:32> My impression: Rectal foreign body <Reuben Lau MD - Last Filed: 05/27/25 22:32> Radiologist's impression: ITS Impressions Abdomen X-Ray 05/27/25 14:45 IMPRESSION: Foreign body in the rectum as described. <Patricia Gallagher PA-C - Last Filed: 06/05/25 14:45> ITS Impressions Abdomen X-Ray 05/27/25 14:45 IMPRESSION: Foreign body in the rectum as described. <Reuben Lau MD - Last Filed: 05/27/25 22:32> Discharge Plan Discharge Clinical Impression: Rectal foreign body Qualifiers: Encounter type: initial encounter Qualified Code(s): T18.5XXA - Foreign body in anus and rectum, initial encounter <Patricia Gallagher PA-C - Last Filed: 06/05/25 14:45> Patient Disposition: Home <Patricia Gallagher PA-C - Last Filed: 06/05/25 14:45> Condition: Improved <Patricia Gallagher PA-C - Last Filed: 06/05/25 14:45>
--- NOTE | 2025-05-27 16:14 | PM.IMHP ---
H&P: HPI History of Present Illness Date/Time: 05/27/25 16:14 Chief Complaint: Foreign body in rectum Narrative: This is a 64-year-old man with history of COPD, HTN, and tobacco abuse, who presented to the ED today with abdominal pain. He reports concern of having a foreign body in his rectum. He is unclear what the object is and does not recall what happened last night. He reports being at a libertarian and drinking a large amount of alcohol and illicit drug use. He admits to smoking marijuana and thinks possibly using cocaine. He woke up this morning and ate food around 7 am. He noticed abdominal pain. This continued throughout the day. No nausea or vomiting. He tried to have a bowel movement after drinking coffee and taking his medications this morning, but was unable to have a BM. This concerned him and he came into the ED for evaluation. Abdominal x-ray in the ED showed foreign body in rectum. No evidence of free air. He denies having any abdominal surgeries in the past. ED provider attempted to do a rectal exam and remove the foreign object, but after multiple attempts in different positions was unsuccessful and patient was very uncomfortable. Review of Systems Review of Systems: All systems reviewed & are unremarkable except as noted in HPI and below PMFSH Past Medical History Medical History Tobacco dependence Bilateral primary osteoarthritis of knee Osteoporosis Anxiety Depression Dry skin Constipation When taking anxiety medication Chronic headaches Back pain Weight gain Left knee DJD Right knee DJD Spider bite Vision changes COPD (chronic obstructive pulmonary disease) Left ulnar fracture Surgical History Surgical History History of ankle surgery History of surgery on right wrist Social History Social History Smoking packs per day: 1 Smoking cigarettes per day: 20.0 Years smoked: 45 Smoking pack-years: 45.00 Smoking status: Current every day smoker (vaping) Tobacco type: cigarettes Alcohol intake: current Substance use: current Substance use type: marijuana and crack/cocaine Last use: 05/26/25 Living arrangements: with family Meds Home Medications and Allergies Home Medications ?Medication ?Instructions ?Recorded ?Confirmed ?Type amlodipine 10 mg tablet 40 mg PO DAILY 06/27/21 05/27/25 History hydroxyzine HCl 10 mg tablet 10 mg PO TID PRN 06/27/21 History chlorthalidone 25 mg tablet 25 mg PO DAILY 05/27/25 05/27/25 History duloxetine 60 mg capsule,delayed 60 mg PO DAILY 05/27/25 05/27/25 History release gabapentin 400 mg capsule 400 mg PO DAILY 05/27/25 05/27/25 History hydroxyzine HCl 50 mg tablet 50 mg PO Q8H 05/27/25 05/27/25 History meloxicam 15 mg tablet 15 mg PO DAILY 05/27/25 05/27/25 History sildenafil 100 mg tablet 100 mg PO PRN PRN erectile 05/27/25 05/27/25 History dysfunction Allergies Allergy/AdvReac Type Severity Reaction Status Date / Time No Known Allergies Allergy Verified 05/27/25 13:18 Vital Signs Vital Signs - 24 hr 05/27/25 13:10 05/27/25 15:42 Temperature 97.7 F Pulse Rate 93 86 Respiratory Rate 16 18 Blood Pressure 113/83 129/85 Pulse Oximetry 97 97 Oxygen Delivery Room Air Room Air Exam Const: General: comfortable and no acute distress Nutritional Appearance: average body habitus Orientation/consciousness: patient oriented x3 HENMT: Head: normocephalic and atraumatic Ears: hearing grossly normal bilaterally Mouth: Yes moist mucous membranes Eyes: General: appearance normal, both eyes and all related structures Pupils: Equal, round and reactive pupils present Neck: Neck: normal visual inspection and full ROM Resp: Effort & Inspection: no respiratory distress Auscultation: clear to auscultation bilaterally Cardio: Rate: regular rate Rhythm: regular rhythm Peripheral pulses: Peripheral pulses 2+ throughout GI: Inspection: non-distended, scar (few small scars on the lower abdomen) and no visible herniation GI Palp: Yes Soft to palpation, Yes Tenderness to palpation present (GI) (palpable mass in the mid lower abdomen with tenderness in this area), No Guarding due to palpation present (GI), Yes No hepatosplenomegaly present and No Rebound tenderness present Auscultation: Hypoactive bowel sounds present Rectal Exam: deferred Skin: General skin exam: normal color Neuro: General: moves all extremities and no focal motor deficits Speech: normal speech Motor exam (neuro): 5/5 motor strength present throughout Extrem: General: normal to inspection and no edema Psych: Mental Status: mental status grossly normal Attitude: cooperative Insight: Good insight present (Psych) Judgement: Good judgement present (Psych) H&P: Results Imaging Abdominal x-ray: Radiologist's impression: ITS Impressions Abdomen X-Ray 05/27/25 14:45 IMPRESSION: Foreign body in the rectum as described. Assessment and Plan Assessment and plan (1) Rectal foreign body: Code(s): T18.5XXA - Foreign body in anus and rectum, initial encounter Status: Acute Assessment and Plan: Patient has a rectal foreign body noted on his plain films in the ED. Multiple attempts made to retrieve the foreign object with rectal exam in the ED, but this was unsuccessful and patient was uncomfortable. We would recommend proceeding with removal rectal foreign body by Dr. Quezada in the OR today. Description of the procedure, risks, benefits, and alternatives were discussed. The patient agrees to proceed. He has been added to the surgery schedule today. He will be kept NPO and proceed to the OR. (2) COPD (chronic obstructive pulmonary disease): Code(s): J44.9 - Chronic obstructive pulmonary disease, unspecified Status: Acute (3) Tobacco dependence: Code(s): F17.200 - Nicotine dependence, unspecified, uncomplicated Status: Acute Plan I have discussed the patient's case and plan of care with Dr. Quezada.
[2025-05-27 16:20] LABS: Hematocrit 42.1 % (42.0-52.0); Hemoglobin 13.9 g/dL (14.0-18.0); Immature Granulocyte Percent A 0.4 % (0-0.5); Lymphocytes Absolute Auto 1.37 K/mm3 (0.9-3.2); Mean Corpuscular HGB Conc 33.0 g/dl (32-36); Mean Corpuscular Hemoglobin 30.4 pg (26-34); Mean Corpuscular Volume 92.1 fl (80-100); Nucleated Red Blood Cells Absolute Auto 0.000 K/mm3 (0.0-0.012); Nucleated Red Blood Cells Perc 0.0 % (0.0-0.2); Platelet Count Result 295 k/mm3 (150-375); Red Blood Count 4.57 M/mm3 (4.6-6.20); White Blood Count 9.2 K/mm3 (4.5-10.0)
[2025-05-27 16:27] LABS: Add Urine Microscopic? YES; Appearance Urine Clear (Clear); Glucose Urine UA Negative (Negative); Leukocyte Esterase Ur Trace LEU/UL (Negative); Nitrate Urine Negative (Negative); Specific Grav Ur 1.031 (1.001-1.035)
[2025-05-27 16:34] LABS: Alanine Aminotransferase 22 U/L (6-50); Albumin Level 4.8 g/dL (3.5-5.1); Alkaline Phosphatase 93 U/L (38-126); Anion Gap 9 mmol/L (4-12); Aspartate Amino Transferase 30 U/L (17-59); Bilirubin,Total 0.4 mg/dL (0.2-1.3); Blood Urea Nitrogen 24 mg/dL (9-20); Calcium 9.0 mg/dL (8.4-10.2); Carbon Dioxide 26 mmol/L (22-30); Chloride 104 mmol/L (98-107); Estimated CRCL calculation 61 ml/min; Estimated Glomerular Filt Rate > 60; Glucose 101 mg/dL (65-110); Lipase 80 U/L (23-300); Potassium 3.8 mmol/L (3.4-5.0); Sodium 139 mmol/L (137-145); Total Protein 8.3 g/dL (6.3-8.2)
[2025-05-27 16:36] LABS: INR 1.0; Prothrombin Time 13.6 Seconds (11.1-14.7)
[2025-05-27 16:37] LABS: Partial Thromboplastin Time 31.0 Seconds (22.3-36.8)
[2025-05-27] MEDS: HYDROmorphone HCL INJ (*CRX) 1 MG/ML SYR IV PUSH (16:44)
--- NOTE | 2025-05-27 16:50 | WPDANESEPPF ---
Anes - Initial Pre Proc Eval Procedure: Operation Date: 05/27/25 16:30 Proposed Procedures p Removal Rectal Foreign Body - Herman Quezada MD Date/Time: 05/27/25 16:50 Pre Op Diagnosis: abd pain Patient Data Age: 64 Gender: M Height: 1.7 m Weight: 89 kg Last Vital Signs Temp 36.5 C 05/27/25 13:10 Pulse 86 05/27/25 15:42 Resp 18 05/27/25 15:42 BP 129/85 05/27/25 15:42 Pulse Ox 97 05/27/25 15:42 O2 Del Method Room Air 05/27/25 15:42 Allergies Allergy/AdvReac Type Severity Reaction Status Date / Time No Known Allergies Allergy Verified 05/27/25 16:50 Home Medications ?Medication ?Instructions ?Recorded ?Confirmed ?Type amlodipine 10 mg tablet 40 mg PO DAILY 06/27/21 05/27/25 History hydroxyzine HCl 10 mg tablet 10 mg PO TID PRN 06/27/21 History chlorthalidone 25 mg tablet 25 mg PO DAILY 05/27/25 05/27/25 History duloxetine 60 mg capsule,delayed 60 mg PO DAILY 05/27/25 05/27/25 History release gabapentin 400 mg capsule 400 mg PO DAILY 05/27/25 05/27/25 History hydroxyzine HCl 50 mg tablet 50 mg PO Q8H 05/27/25 05/27/25 History meloxicam 15 mg tablet 15 mg PO DAILY 05/27/25 05/27/25 History sildenafil 100 mg tablet 100 mg PO PRN PRN erectile 05/27/25 05/27/25 History dysfunction Laboratory Tests 05/27/25 16:09 WBC 9.2 K/mm3 (4.5-10.0) RBC 4.57 L M/mm3 (4.6-6.20) Hgb 13.9 L g/dL (14.0-18.0) Hct 42.1 % (42.0-52.0) MCV 92.1 fl (80-100) MCH 30.4 pg (26-34) MCHC 33.0 g/dl (32-36) RDW 13.1 % (11.5-14.5) Plt Count 295 k/mm3 (150-375) MPV 9.2 fl (7.4-10.4) Immature Gran % (Auto) 0.4 % (0-0.5) Neut % (Auto) 74.5 H % (45.5-73.1) Lymph % (Auto) 15.0 L % (18.3-44.2) [place] % (Auto) 9.0 H % (2.6-8.5) Eos % (Auto) 0.0 % (0-4.4) Baso % (Auto) 1.1 % (0.2-1.2) Lymph # (Auto) 1.37 K/mm3 (0.9-3.2) [place] # (Auto) 0.8 H K/mm3 (0.1-0.6) Eos # (Auto) 0.0 K/mm3 (0-0.3) Baso # (Auto) 0.1 K/mm3 (0.0-0.1) Abs Immat Gran (auto) 0.04 H K/mm3 (0.00-0.031) Absolute Neuts (auto) 6.8 H K/mm3 (1.3-6.7) Absolute Nucleated RBC 0.000 K/mm3 (0.0-0.012) Nucleated RBC % 0.0 % (0.0-0.2) PT 13.6 Seconds (11.1-14.7) INR 1.0 APTT 31.0 Seconds (22.3-36.8) Sodium 139 mmol/L (137-145) Potassium 3.8 mmol/L (3.4-5.0) Chloride 104 mmol/L (98-107) Carbon Dioxide 26 mmol/L (22-30) Anion Gap 9 mmol/L (4-12) BUN 24 H mg/dL (9-20) Creatinine 1.14 mg/dL (0.7-1.3) Estim Creat Clear Calc 61 ml/min Estimated GFR > 60 (59 - ) Glucose 101 mg/dL (65-110) Calcium 9.0 mg/dL (8.4-10.2) Total Bilirubin 0.4 mg/dL (0.2-1.3) AST 30 U/L (17-59) ALT 22 U/L (6-50) Alkaline Phosphatase 93 U/L (38-126) Total Protein 8.3 H g/dL (6.3-8.2) Albumin 4.8 g/dL (3.5-5.1) Lipase 80 U/L (23-300) Urine Color Dark yellow (Yellow) Urine Appearance Clear (Clear) Urine pH 5.5 (5.0-9.0) Ur Specific [place] 1.031 (1.001-1.035) Urine Protein Negative mg/dL (Negative) Urine Glucose (UA) Negative mg/dL (Negative) Urine Ketones Trace H mg/dL (Negative) Ur Blood (Man) Negative (Negative) Urine Nitrate Negative (Negative) Urine Bilirubin Negative (Negative) Urine Urobilinogen 1.0 mg/dL (<2.0) Leukocyte Esterase Rfl Trace H ROSA/UL (Negative) Urine RBC 0-2 /hpf (0-2) Urine WBC 0-5 /hpf (0-3) Ur Squamous Epith Cells None seen /hpf (Few) Urine Bacteria None seen /hpf Urine Casts 3-5 Patient hx anesthesia problems: none Family hx anesthesia problems: none Results Review: All pre-operative results and documents have been reviewed as part of the pre-operative evaluation. [facility] Past Medical History Medical History Tobacco dependence Bilateral primary osteoarthritis of knee Osteoporosis Anxiety Depression Dry skin Constipation When taking anxiety medication Chronic headaches Back pain Weight gain Left knee DJD Right knee DJD Spider bite Vision changes COPD (chronic obstructive pulmonary disease) Left ulnar fracture Surgical History Surgical History History of ankle surgery History of surgery on right wrist Social History Social History Smoking packs per day: 1 Smoking cigarettes per day: 20.0 Years smoked: 45 Smoking pack-years: 45.00 Smoking status: Current every day smoker (vaping) Tobacco type: cigarettes Alcohol intake: current Substance use: current Substance use type: marijuana and crack/cocaine Last use: 05/26/25 Living arrangements: with family Conrado - Cindy Final PreProcedure Day of Procedure 05/27/25 16:50 Patient weight: obese Heart: regular rate and rhythm Lungs: decreased breath sounds Airway: Mallampati scale class II Neurological: alert and oriented Last oral intake: >/= 8 hours ASA classification: III Emergent: yes Anesthetic plan: proceed Anesthesia type and monitoring: general ETT and standard monitoring Results Review: All pre-operative results and documents have been reviewed as part of the pre-operative evaluation. Informed Consent: The patient's anesthetic plan and its attendant risks and benefits were discussed with the patient/family/POA. Questions were solicited and answers provided to the satisfaction of the patient/family/POA.
--- NOTE | 2025-05-27 16:53 | WPDHPUPDATE1 ---
History and Physical Update Update Date/Time: 05/27/25 16:53 History and Physical has been reviewed, including an updated exam of the patient. There are NO changes in the patient's condition. Risks, benefits, and alternatives have been discussed and questions answered. Patient agrees to proceed with procedure.
[2025-05-27] MEDS: LACTATED RINGERS 1,000 ML 30 ML IV CONT (16:54)
--- NOTE | 2025-05-27 17:18 | W.PM.PROC2 ---
Procedure Note - Detailed Date of Procedure 05/27/25 Pre-op Diagnosis Rectal foreign body Post-op Diagnosis Same Procedure Performed Transanal removal rectal foreign body under anesthesia Surgeon Herman Quezada MD Anesthesia General Indications Patient was at a republican in which he lost consciousness. He noted some abdominal pain today and lack of bowel movement. He came to the emergency room where x-ray showed a rectal foreign body. This was palpable on rectal exam but unable to be removed in the emergency room. He is taken to surgery now for transanal removal under anesthesia Findings Cylindrical hard rubber object with diameter about 2 in in length about 8 in. Description of Procedure Patient was taken to the operating room and induced into general anesthesia. Was then placed in lithotomy with Volodymyr stirrups. Prep and drape was carried out. I was able to feel the foreign body on rectal exam. It was too far up the rectum to grasp. With gentle pressure on the suprapubic abdomen, I was able to deliver the foreign body closer to the anal verge. Continuing this, I was able to get the end of the foreign body out the anal verge where I could grasp it with a laparotomy sponge. From here some mild twisting and the foreign body was retracted and removed. No bleeding or other abnormalities were appreciated. Digital exam following removal was normal. Estimated Blood Loss 0 Pathology None sent Complications None Condition Stable Disposition PACU [facility] Billing Surgery - Charge Forward: Surgery Billing (Transanal removal rectal foreign body under anesthesia)
--- NOTE | 2025-05-27 17:21 | PM.DS ---
DS: Admitting Diagnosis Discharge Date 05/27/25 Admitting Diagnosis Rectal foreign body DS: Discharge Diagnosis Discharge Diagnosis (1) Rectal foreign body: Code(s): T18.5XXA - Foreign body in anus and rectum, initial encounter Status: Acute DS: Summary Hospital Course Hospital Course: Patient remained an outpatient. He was taken from the emergency room to the operating room. The foreign body was removed. He awakened in PACU and the step-down unit and was then discharged. Status at Discharge Functional status at discharge: independent ambulation Overall status at discharge: patient is back to baseline Time Spent with Patient Time attestation: Total time spent providing and/or coordinating discharge services: Time spent: Less than 30 minutes DS: Data Data Completed and Pending Labs on day of discharge: Labs from last 24 hours 05/27/25 16:09 WBC 9.2 RBC 4.57 L Hgb 13.9 L Hct 42.1 MCV 92.1 MCH 30.4 MCHC 33.0 RDW 13.1 Plt Count 295 MPV 9.2 Immature Gran % (Auto) 0.4 Neut % (Auto) 74.5 H Lymph % (Auto) 15.0 L [place] % (Auto) 9.0 H Eos % (Auto) 0.0 Baso % (Auto) 1.1 Lymph # (Auto) 1.37 [place] # (Auto) 0.8 H Eos # (Auto) 0.0 Baso # (Auto) 0.1 Abs Immat Gran (auto) 0.04 H Absolute Neuts (auto) 6.8 H Absolute Nucleated RBC 0.000 Nucleated RBC % 0.0 PT 13.6 INR 1.0 APTT 31.0 Sodium 139 Potassium 3.8 Chloride 104 Carbon Dioxide 26 Anion Gap 9 BUN 24 H Creatinine 1.14 Estim Creat Clear Calc 61 Estimated GFR > 60 Glucose 101 Calcium 9.0 Total Bilirubin 0.4 AST 30 ALT 22 Alkaline Phosphatase 93 Total Protein 8.3 H Albumin 4.8 Lipase 80 Urine Color Dark yellow Urine Appearance Clear Urine pH 5.5 Ur Specific [place] 1.031 Urine Protein Negative Urine Glucose (UA) Negative Urine Ketones Trace H Ur Blood (Man) Negative Urine Nitrate Negative Urine Bilirubin Negative Urine Urobilinogen 1.0 Leukocyte Esterase Rfl Trace H Urine RBC 0-2 Urine WBC 0-5 Ur Squamous Epith Cells None seen Urine Bacteria None seen Urine Casts 3-5 Discharge Plan Discharge Clinical Impression: Rectal foreign body Patient Disposition: Home Condition: Improved Instructions: Antibiotic Form Additional Instructions: No driving for 24 hours Nothing per rectum for 48 hours [place] diet today but then advanced to normal diet tomorrow Call or go to the emergency room if experience severe abdominal pain, persistent rectal bleeding, or other significant change in condition. No follow-up with surgery were required. Return to your primary care physician as previously scheduled Patient Language: [place] Prescriptions: Continued hydroxyzine HCl 10 mg tablet 10 mg PO TID PRN amlodipine 10 mg tablet 40 mg PO DAILY chlorthalidone 25 mg tablet 25 mg PO DAILY duloxetine 60 mg capsule,delayed release(DR/EC) 60 mg PO DAILY gabapentin 400 mg capsule 400 mg PO DAILY hydroxyzine HCl 50 mg tablet 50 mg PO Q8H meloxicam 15 mg tablet 15 mg PO DAILY sildenafil 100 mg tablet 100 mg PO PRN PRN (Reason: erectile dysfunction) Follow-up/Referrals: UNKNOWN,DOCTOR [Primary Care Provider] Referral Note: Follow-up with primary care provider as previously scheduled. No surgical follow-up needed.
== END 2025-05-27 18:40 | disposition home or self-care (01) ==
LOC: ANHED 16:14 → ANHSURGERY 18:21
PROVIDERS: Physician Assistant; Emergency Provider Emergency Medicine; Visit Provider Surgery
PROC: (CPT 45915; principal; 2025-05-27 16:30)
DX: T18.5XXA Foreign body in anus and rectum, initial encounter (principal); F17.290 Nicotine dependence, other tobacco product, uncomplicated; F12.90 Cannabis use, unspecified, uncomplicated; F14.90 Cocaine use, unspecified, uncomplicated; I10 Essential (primary) hypertension; J44.9 Chronic obstructive pulmonary disease, unspecified
CPT/HCPCS: 45915; 36415; 74018; 80053; 81001; 83690; 85025; 85610; 85730; 99285; J1171; J2250; J2270; J2704; J7120